=== PATIENT | female | born 1995 | race Caucasian/White ===

== ENCOUNTER 2018-09-07 19:51 | Emergency (ER) | payer OTHER ==
[2018-09-07 19:58] VITALS: BMI 22.6
--- NOTE | 2018-09-07 19:59 | PDOC ---
Rapid Medical Evaluation Time Seen by Provider: 09/07/18 19:53 Medical Evaluation: 09/07/18 19:53 I have performed a brief in-person evaluation of this patient. The patient presents with a chief complaint of: acute onset headache, dizziness , "feeling cramps", since today. hx of anxiety. pt reports hx of headaches but "never with my body feeling this bad and with cramping to my neck and hands" Pertinent physical exam findings: anxious appearing, tearful, tachy to 150s, temp 99.8. I have ordered the following: labs, urine, ekg, IV The patient will proceed to the ED for further evaluation.
[2018-09-07] MEDS ORDERED: ACETAMINOPHEN 325 MG TABLET (FP) PO ONE (20:27)
[2018-09-07] MEDS ORDERED: ACETAMINOPHEN 325 MG TABLET (FP) ONE (20:41)
--- NOTE | 2018-09-07 20:47 | PDOC ---
History of Present Illness - General Chief Complaint: Head/Neck problem Stated Complaint: FEVER/HEADACHE Time Seen by Provider: 09/07/18 19:53 History Source: Patient Exam Limitations: No Limitations Past History - Past Medical History Allergies/Adverse Reactions: Allergies Allergy/AdvReac Type Severity Reaction Status Date / Time No Known Allergies Allergy Verified 09/07/18 19:58 Home Medications: Ambulatory Orders NK [No Known Home Medication] 09/07/18 COPD: No Psychiatric Problems: Yes (Anxiety) - Suicide/Smoking/Psychosocial Hx Smoking History: Unknown if ever smoked Have you smoked in the past 12 months: No Information on smoking cessation initiated: No Hx Alcohol Use: No Drug/Substance Use Hx: No *Physical Exam - Vital Signs Last Vital Signs Temp Pulse Resp BP Pulse Ox 99.8 F H 148 H 16 161/82 100 09/07/18 19:56 09/07/18 19:56 09/07/18 19:56 09/07/18 19:56 09/07/18 19:56 - Physical Exam General Appearance: No: Apparent Distress HEENT: positive: Normal ENT Inspection, Normal Voice, TMs Normal, Pharynx Normal. negative: Pharyngeal Erythema, Tonsillar Exudate, Tonsillar Erythema Respiratory/Chest: positive: Lungs Clear, Normal Breath Sounds. negative: Respiratory Distress Cardiovascular: positive: Regular Rate, Tachycardia. negative: Murmur Gastrointestinal/Abdominal: positive: Soft. negative: Tender Integumentary: positive: Normal Color Neurologic: positive: Alert, Normal Mood/Affect Medical Decision Making - Medical Decision Making 22 y/o F hx of anxiety presents with bodyaches, chills, HAMMONDS, fever, throat pain, B/L ear pain from today. Also mentions having some chest burning and SOB and feeling a bit anxious prior to coming to ED as she does not like hospitals. Denies congestion, rhinorrhea, abd pain, n/v/d, urinary complaints. Initially, patient was a bit tearful, but later on, feeling better PE unremarkable Repeat HR was 114, BP 157/87 Probable viral syndrome Plan: Tylenol, Flu swab, UCG, PO fluids, reassess 09/07/18 20:43 After Tylenol, repeat vitals showed temp of 101.8 Patient was given Motrin On reassessment, improvement in vitals - HR 111, Temp 98.1 Patient feeling better on reassessment Stable for dc 09/07/18 22:35 *DC/Admit/Observation/Transfer Diagnosis at time of Disposition: Viral URI - Discharge Dispostion Disposition: HOME Condition at time of disposition: Stable Decision to Admit order: No - Referrals - Patient Instructions Printed Discharge Instructions: DI for Viral Upper Respiratory Infection -- Adult Additional Instructions: Thank you for choosing [facility]. It was a pleasure taking care of you. You were found to be negative for flu Take Tylenol or Motrin as needed for fever Stay hydrated - at least 2L of water daily Follow-up with your doctor in 2-3 days Return to the Emergency Department if your symptoms worsen or persist or have other concerning symptoms. - Post Discharge Activity Forms/Work/School Notes: Back to Work
[2018-09-07 20:58] LABS: PH,URINE >= 9.0 (5.0-8.0); URINE APPEARANCE CLEAR; URINE BILIRUBIN NEGATIVE (NEGATIVE); URINE COLOR YELLOW; URINE GLUCOSE (UA) NEGATIVE (NEGATIVE); URINE KETONE NEGATIVE (NEGATIVE); URINE LEUK ESTERASE NEGATIVE (NEGATIVE); URINE NITRITE NEGATIVE (NEGATIVE); URINE PROTEIN NEGATIVE (NEGATIVE); URINE UROBILINOGEN 0.2 mg/dL (0.2-1.0)
[2018-09-07] MEDS ORDERED: IBUPROFEN 400 MG TABLET (FP) PO ONE ×2 (21:43→21:47)
[2018-09-07 22:35] VITALS: BP 107/53; PULSE 111; TEMP 98.1
--- NOTE | 2018-09-09 15:38 | EKG ---
Test Reason : Blood Pressure : / mmHG Vent. Rate : 096 BPM Atrial Rate : 096 BPM P-R Int : 142 ms QRS Dur : 084 ms QT Int : 316 ms P-R-T Axes : 060 033 040 degrees QTc Int : 399 ms NORMAL SINUS RHYTHM POSSIBLE LEFT ATRIAL ENLARGEMENT CANNOT RULE OUT ANTERIOR INFARCT , AGE UNDETERMINED ABNORMAL ECG NO PREVIOUS ECGS AVAILABLE Confirmed by MD Causey Daniel ([id number]) on 09/09/2018 3:38:32 PM Referred By: Confirmed By:Benjamin Causey MD
== END 2018-09-07 22:55 | disposition home or self-care (01) ==
LOC: JER 19:51
DX: J06.9 Acute upper respiratory infection, unspecified (principal); B97.89 Other viral agents as the cause of diseases classified elsewhere
CPT/HCPCS: 81003; 84703; 87804; 93005; 93010; 99282-25